=== PATIENT | male | born 2000 | race Hispanic/Latino ===

== ENCOUNTER 2021-07-22 00:29 | Emergency (ER) | payer SELFPAY ==
[~2021-07-22] VITALS: Ht 175.3 cm; Wt 61.2 kg
== END 2021-07-22 01:00 | disposition home or self-care (01) ==
LOC: ER 00:46
DX: S61.411A Laceration without foreign body of right hand, initial encounter (principal); W45.8XXA Other foreign body or object entering through skin, initial encounter; Y92.098 Other place in other non-institutional residence as the place of occurrence of the external cause
CPT/HCPCS: 99283